=== PATIENT | male | born 1950 | race Caucasian/White ===

== ENCOUNTER 2022-07-19 07:20 | Observation (INO) | payer MEDICARE, OTHER ==
[~2022-07-19] VITALS: Ht 172.7 cm; Wt 189.0 kg
[2022-07-19 07:48] VITALS: BP_SYST 117; BP_SYST 122; BP_DIAS 75; BP_DIAS 78; BP_DIAS 81
--- NOTE | 2022-07-19 08:05 | ED Syncope ---
General Chief Complaint: Trauma-Non Activation Stated Complaint: FALL Nursing Triage Note: PT TO ROOM 05 [facility]IA [facility] WITH C/O TRIPPING AND FALLING AT WORK. PT DENIES LOC. PT DENIES HEAD/NECK/BACK PAIN. EMS STATES PT TRIPPED AND FELL AND THEN WENT BACK TO WORK. EMS STATES PT DID NOT SIT AND REST AFTER FALL AND THAT PT WENT BACK TO WORK AND FELL AGAIN UNWITNESSED AND WAS FOUND WITH A "CART" ON TOP OF HIM. PT STATES HE DOES NOT REMEMBER WHAT HAPPENED AND DOES NOT REMEMBER FALLING. PT A/O X4 UPON ARRIVAL. History of Present Illness Date Seen by Provider: Jul 19, 2022 Time Seen by Provider: 07:48 Initial Comments Patient is a 72-year-old male who presents to the emergency room today after what sounds like a syncopal event. 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 He went out and leaned against a truck and as he was going back into work he states that the last thing he remembers. He was found with some type of a cart laying on top of him. He states he felt dizzy as he was walking away from the truck. He states he did have an episode of chest discomfort yesterday. It did not radiate he cannot recall really what it felt like. He denies feeling nauseous or short of breath or sweaty yesterday. He has no cardiac history. He does take medication for hypertension. He is not a smoker. He has never had cardiac evaluation. He states at this time he feels back to normal although "my ass is sore" from sitting in the bed he states. He has a little soreness to his left wrist and a bruise on his left elbow from his fall. No recent illnesses such as fevers, chills, cough or congestion. He is not a diabetic. No problems with bowel or bladder. No other complaints of injury. Timing/Prior Episodes: No Prior History Symptoms Prior to Episode: None Precipitating Factors: Other (was "working" in maintenance) Loss of Consciousness: Unsure Current Symptoms: Other (dizzy prior to syncope) Allergies and Home Medications Allergies Coded Allergies: No Allergy Information Available (Unverified , 07/19/22) Patient Home Medication List Home Medication List Reviewed: Yes No Active Prescriptions or Reported Meds Review of Systems Constitutional: see HPI EENTM: no symptoms reported Respiratory: no symptoms reported Cardiovascular: chest pain (yesterday) Gastrointestinal: no symptoms reported Genitourinary: no symptoms reported Musculoskeletal: joint pain (left wrist) Psychiatric/Neurological: Other (dizzy prior to syncope) Past Crtkqvr-Mjchnj-Morrha Hx Patient Social History Tobacco Use?: No Smoking Status: Former Smoker Smokeless Tobacco Frequency: Never a User Use of E-Cig and/or Vaping dev: No Use of E-Cig and/or Vaping Loc: Never a User Substance use?: No Alcohol Use?: No Pt feels they are or have been: No Physical Exam Vital Signs Vital Signs - First Documented 07/19/22 07:20 Temp 35.6 Pulse 73 Resp 17 B/P (MAP) 106/75 (85) Pulse Ox 96 O2 Delivery Room Air Capillary Refill : Less Than 3 Seconds Height, Weight, BMI Height: '" Weight: lbs. oz. kg; 28.00 BMI Method: General Appearance: No Apparent Distress, WD/WN HEENT: PERRL/EOMI, Pharynx Normal, Other (edentulous) Neck: Full Range of Motion, Normal Inspection, Non Tender Cardiovascular: Regular Rate, Rhythm, Normal Peripheral Pulses Respiratory: Lungs Clear, Normal Breath Sounds, No Accessory Muscle Use, No Respiratory Distress Gastrointestinal: Normal Bowel Sounds, Non Tender, Soft Extremities: Normal Inspection, Normal Range of Motion, Other (slightly tender to palpation to left wrist, no swelling) Neurologic/Psychiatric: Alert, Oriented x3, No Motor/Sensory Deficits, Normal Mood/Affect, 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 Cranial Nerves: Normal Hearing, Normal Speech, PERRL Motor/Sensory: No Motor Deficit, No Sensory Deficit Skin: Normal Color, Warm/Dry, Other (small ecchymoses left elbow) Progress/Results/Core Measures Results/Orders Lab Results Laboratory Tests Test 07/19/22 07:20 07/19/22 08:34 Range/Units White Blood Count 10.9 4.3-11.0 10^3/uL Red Blood Count 5.57 H 4.30-5.52 10^6/uL Hemoglobin 15.7 13.3-17.7 g/dL Hematocrit 47 40-54 % Mean Corpuscular Volume 84 80-99 fL Mean Corpuscular Hemoglobin 28 25-34 pg Mean Corpuscular Hemoglobin Concent 34 32-36 g/dL Red Cell Distribution Width 14.4 10.0-14.5 % Platelet Count 318 130-400 10^3/uL Mean Platelet Volume 9.9 9.0-12.2 fL Immature Granulocyte % (Auto) 1 % Neutrophils (%) (Auto) 56 42-75 % Lymphocytes (%) (Auto) 31 12-44 % Monocytes (%) (Auto) 8 0-12 % Eosinophils (%) (Auto) 4 0-10 % Basophils (%) (Auto) 1 0-10 % Neutrophils # (Auto) 6.1 1.8-7.8 10^3/uL Lymphocytes # (Auto) 3.4 1.0-4.0 10^3/uL Monocytes # (Auto) 0.9 0.0-1.0 10^3/uL Eosinophils # (Auto) 0.4 H 0.0-0.3 10^3/uL Basophils # (Auto) 0.1 0.0-0.1 10^3/uL Immature Granulocyte # (Auto) 0.1 0.0-0.1 10^3/uL Prothrombin Time 12.7 12.2-14.7 SEC INR Comment 0.9 0.8-1.4 Activated Partial Thromboplast Time 28 24-35 SEC Sodium Level 136 135-145 MMOL/L Potassium Level 4.1 3.6-5.0 MMOL/L Chloride Level 103 98-107 MMOL/L Carbon Dioxide Level 20 L 21-32 MMOL/L Anion Gap 13 5-14 MMOL/L Blood Urea Nitrogen 25 H 7-18 MG/DL Creatinine 1.76 H 0.60-1.30 MG/DL Estimat Glomerular Filtration Rate 40 BUN/Creatinine Ratio 14 Glucose Level 164 H 70-105 MG/DL Calcium Level 9.8 8.5-10.1 MG/DL Corrected Calcium 9.4 8.5-10.1 MG/DL Magnesium Level 2.0 1.6-2.4 MG/DL Total Bilirubin 0.6 0.1-1.0 MG/DL Aspartate Amino Transf (AST/SGOT) 26 5-34 U/L Alanine Aminotransferase (ALT/SGPT) 32 0-55 U/L Alkaline Phosphatase 54 40-136 U/L Myoglobin 147.2 H 10.0-92.0 NG/ML Troponin I < 0.028 <0.028 NG/ML Total Protein 8.3 H 6.4-8.2 GM/DL Albumin 4.5 3.2-4.5 GM/DL Glucometer 128 H 70-110 MG/DL My Orders Orders - MARCELINA HENLEY MD Ekg Tracing (07/19/22 07:52) Cbc With Automated Diff (07/19/22 08:05) Magnesium (07/19/22 08:05) Chest 1 View, Ap/Pa Only (07/19/22 08:05) Comprehensive Metabolic Panel (07/19/22 08:05) Myoglobin Serum (07/19/22 08:05) Protime With Inr (07/19/22 08:05) Partial Thromboplastin Time (07/19/22 08:05) O2 (07/19/22 08:05) Monitor-Rhythm Ecg Trace Only (07/19/22 08:05) Lipid Panel (07/20/22 06:00) Ed Iv/Invasive Line Start (07/19/22 08:05) Troponin I Tracy (07/19/22 08:05) Accucheck Stat ONCE (07/19/22 08:05) Vital Signs/I&O 07/19/22 07/19/22 07/19/22 07:20 07:20 07:48 Temp 35.6 35.6 Pulse 73 73 71 77 81 Resp 17 17 B/P (MAP) 106/75 (85) 106/75 (85) 122/75 (91) 122/81 (95) 117/78 (91) Pulse Ox 96 O2 Delivery Room Air Room Air Blood Pressure Mean: 91 Progress Progress Note : Time: 09:34 Progress Note Patient seen and examined, 72-year-old status post syncopal event at work this morning. Unwitnessed. No real injury. He had some discomfort in his left wrist however exam does not support the need for x-ray. Patient's vital signs remained stable. He does have a little chronic kidney disease on Chem-12. Slightly elevated blood glucose. Not anemic. Normal troponin, normal EKG. No cardiac history that he is aware of, treated for hypertension. Non-smoker. Work-up is otherwise unremarkable. No focal neurologic deficit. CT considered however history and physical exam do not support the need. Case discussed with Dr. Toth on [facility]. Recomm[facility] She would like me to consult Dr. Coombs. I have discussed the plan of care with the patient. He is agreeable. Initial ECG Impression Date: Jul 19, 2022 Initial ECG Impression Time: 08:00 Initial ECG Rate: 71 Initial ECG Rhythm: Normal Sinus Initial ECG Intervals KS 184 QRS 103 QTc 447 Comment no ectopy; no ST segment elevation or depression Diagnostic Imaging Diagonstic Imaging: Xray Plain Films/CT/US/NM/MRI: chest Comments [facility] [place] [place] NAME: REGULO SERNA [facility] REC#: [id number] PT STATUS: REG ER : 1950 PHYSICIAN: MARCELINA HENLEY MD ADMIT DATE: 07/19/22/ER Draft Date of Exam:07/19/22 CHEST 1 VIEW, AP/PA ONLY INDICATION: Chest pain COMPARISON: None FINDINGS: Single frontal view of the chest demonstrates normal heart size and pulmonary vascularity. The lungs are well aerated and clear. No large pleural effusion or pneumothorax is seen. The visualized osseous structures show no acute abnormalities. IMPRESSION: 1. No acute cardiopulmonary process. Dictated on workstation # [id number] Dict: 07/19/22 0846 Trans: 07/19/22 0847 CV [id number] Interpreted by: KESHAWN OTOOLE MD Electronically signed by: Departure Communication (Admissions) Time/Spoke to Admitting Phy: 09:[address] Toth; accepts admission Impression Primary Impression: Syncope and collapse Additional Impression: History of hypertension Disposition: ADMITTED INPATIENT Condition: Stable Admissions Decision to Admit Reason: Admit from ER (General) Decision to Admit/Date: Jul 19, 2022 Time/Decision to Admit Time: 09:30 Departure-Patient Inst. Scripts No Active Prescriptions or Reported Meds MARCELINA HENLEY MD Jul 19, 2022 08:04
[2022-07-19 08:10] LABS: BASOPHILS # (AUTO) 0.1 10^3/uL (0.0-0.1); BASOPHILS % (AUTO) 1 % (0-10); EOSINOPHILS # (AUTO) 0.4 10^3/uL (0.0-0.3); EOSINOPHILS % (AUTO) 4 % (0-10); HEMATOCRIT 47 % (40-54); HEMOGLOBIN 15.7 g/dL (13.3-17.7); LYMPHOCYTES # (AUTO) 3.4 10^3/uL (1.0-4.0); LYMPHOCYTES % (AUTO) 31 % (12-44); MEAN CORPUSCULAR HEMOGLOBIN 28 pg (25-34); MEAN CORPUSCULAR HGB CONC 34 g/dL (32-36); MEAN CORPUSCULAR VOLUME 84 fL (80-99); MEAN PLATELET VOLUME 9.9 fL (9.0-12.2); MONOCYTES # (AUTO) 0.9 10^3/uL (0.0-1.0); MONOCYTES % (AUTO) 8 % (0-12); NEUTROPHILS # (AUTO) 6.1 10^3/uL (1.8-7.8); NEUTROPHILS % (AUTO) 56 % (42-75); PLATELET COUNT 318 10^3/uL (130-400); WHITE BLOOD COUNT 10.9 10^3/uL (4.3-11.0)
[2022-07-19 08:19] LABS: INR 0.9 (0.8-1.4); PROTHROMBIN TIME PATIENT 12.7 SEC (12.2-14.7)
[2022-07-19 08:23] LABS: ALBUMIN 4.5 GM/DL (3.2-4.5); BILIRUBIN,TOTAL 0.6 MG/DL (0.1-1.0); CALCIUM 9.8 MG/DL (8.5-10.1); CREATININE SERUM 1.76 MG/DL (0.60-1.30); POTASSIUM 4.1 MMOL/L (3.6-5.0); TOTAL PROTEIN 8.3 GM/DL (6.4-8.2)
--- NOTE | 2022-07-19 08:47 | Diagnostic Imaging Report ---
INDICATION: Chest pain COMPARISON: None FINDINGS: Single frontal view of the chest demonstrates normal heart size and pulmonary vascularity. The lungs are well aerated and clear. No large pleural effusion or pneumothorax is seen. The visualized osseous structures show no acute abnormalities. IMPRESSION: 1. No acute cardiopulmonary process. Dictated by: Dictated on workstation # [id number]
--- NOTE | 2022-07-19 10:32 | Short Stay Summary-Hospitalist ---
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 His family is at the bedside. Telemetry will be maintained and Dr. Coombs's been consulted. He refused COVID swab and influenza swab which is unfortunate because both conditions can cause syncope. Family at the bedside. Source: patient, family Exam Limitations: no limitations Date Seen 07/19/22 Time Seen by a Provider: 13:00 Attending Physician PCP Admitting Physician: Attending Physician: Referring Physician Date of Admission Home Medications & Allergies Home Medications Reviewed patient Home Medication Reconciliation performed by pharmacy medication reconciliations nuclear engineering technician and/or nursing. Patients Allergies have been reviewed. Allergies Allergies Coded Allergies No Allergy Information Available (Ecbmczcmgc23/16/22) Past Qbzjdio-Msesho-Ocpopy Hx Patient Social History Marrital Status: Employed/Student: employed Tobacco Use?: No Smoking Status: Former Smoker Smokeless Tobacco Frequency: Never a User Use of E-Cig and/or Vaping dev: No Use of E-Cig and/or Vaping Loc: Never a User Substance use?: No Alcohol Use?: No Pt feels they are or have been: No Current Status Advance Directives: No Communicates: Verbally Primary Language: Faroese Preferred Spoken Language: Faroese Is interpretation needed?: No Sensory deficits: Vision impairment Implanted or Applied Medical D: None Past Medical History High Cholesterol, Hypertension Review of Systems Constitutional: see HPI, dizziness, malaise, weakness Cardiovascular: chest pain Physical Exam Physical Exam Vital Signs Vital Signs - First Documented 07/19/22 13:06 FiO2 21 Capillary Refill : Less Than 3 Seconds Height, Weight, BMI Height: '" Weight: lbs. oz. kg; 28.00 BMI Method: General Appearance: No Apparent Distress, WD/WN, Chronically ill HEENT: PERRL/EOMI, Pharynx Normal, Other (edentulous) Neck: Full Range of Motion, Normal Inspection, Non Tender Respiratory: Lungs Clear, Normal Breath Sounds, No Accessory Muscle Use, No Respiratory Distress Cardiovascular: Regular Rate, Rhythm, Normal Peripheral Pulses Gastrointestinal: Normal Bowel Sounds, Non Tender, Soft Extremity: Normal Inspection, Normal Range of Motion, Other (slightly tender to palpation to left wrist, no swelling) Neurologic/Psychiatric: Alert, Oriented x3, No Motor/Sensory Deficits, Normal Mood/Affect, 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 Short Stay Diagnosis Discharge Diagnosis-Short Stay Admission Diagnosis Syncope Final Discharge Diagnosis Syncope work-up in progress Conclusion Plan Cardiology consult appreciated Diagnosis/Problems Diagnosis/Problems (1) Syncope and collapse Status: Acute (2) History of hypertension Status: Acute MARGARITA CAIN DO Jul 19, 2022 10:32
[2022-07-19] MEDS ORDERED: BISACODYL 10 MG SUPP (DULCOLAX) PR PRN (11:15)
[2022-07-19] MEDS ORDERED: ANTACID SUSP 30 ML UDC (MYLANTA) PO PRN (11:15)
[2022-07-19] MEDS ORDERED: polyethylene glycoL POWDER 17 GM (MIRALAX) PACK PO PRN (11:15)
[2022-07-19] MEDS ORDERED: HYDROmorphone 2 MG/ML VIAL (DILAUDID) IV PRN (11:15)
[2022-07-19] MEDS ORDERED: diphenhydrAMINE 50 MG/ML INJ (BENADRYL) IVP PRN (11:15)
[2022-07-19] MEDS ORDERED: ACETAMINOPHEN 325 MG TABLET PO PRN (11:15)
[2022-07-19] MEDS ORDERED: MELATONIN 3 MG TABLET PO PRN (11:15)
[2022-07-19] MEDS ORDERED: MILK OF MAGNESIA 400 MG/5 ML 30 ML UDC PO PRN (11:15)
[2022-07-19] MEDS ORDERED: diphenhydrAMINE 25 MG TAB (BENADRYL) PO PRN (11:15)
[2022-07-19] MEDS ORDERED: ONDANSETRON 4 MG (ZOFRAN) ORAL DISSOLVE TAB PO PRN (11:15)
[2022-07-19] MEDS ORDERED: CALCIUM CARBONATE 500 MG (TUMS) TAB.CHEW PO PRN (11:15)
[2022-07-19] MEDS ORDERED: LACTULOSE SYRUP 10GM/15ML (ENULOSE) 30ML UDC PO PRN (11:15)
[2022-07-19] MEDS ORDERED: ONDANSETRON 4 MG/2 ML (SDV) Z0FRAN IV PRN (11:15)
[2022-07-19 13:06] VITALS: BP_SYST 106; BP_SYST 143; BP_DIAS 75; BP_DIAS 89
[2022-07-19] MEDS ORDERED: RT-ALBUTEROL SULF 2.5 MG/3 ML PRE-MIX VIAL INH PRN (13:06)
--- NOTE | 2022-07-19 13:56 | Consultation-Cardiology ---
HPI-Cardiology Cardiology Consultation: Date of Consultation 07/19/22 Time Seen by a Provider: 13:40 Date of Admission 07-19-22 Attending Physician Rachna Gold MD Admitting Physician Admitting Physician: Rhonda Toth DO Attending Physician: Rhonda Toth DO Consulting Physician Maggie Coombs MD HPI: Chief Complaint: Syncope Mr. Xiao is a 72 yr old male who has been admitted to 409 from the ED d/t episode of syncope. He reports he was at work this morning when he tripped and fell. He reports he got up and walked over to a truck. He states he was leaning against the truck and went to walk away. He reports feeling dizzy and the next thing he recalls the ambulance was there. He denies any loss of bowel or bladder control. He denies any history of syncope prior to this event. He denies any c/o CP, palpitations. No c/o LE swelling. No c/o n/v/d. He denies poor appetite. Review of Systems-Cardiology Review of Systems Constitutional: No chills, No fever, No malaise Eyes: No vision change Ears/Nose/Throat: No epistaxis, No recent hearing loss Respiratory: As described under HPI Cardiovascular: As described under HPI Gastrointestinal: As described under HPI Genitourinary: dysuria; No hematuria Musculoskeletal: no symptoms reported Skin: No rash on exposed areas, No ulcerations on exposed areas Psychiatric/Neurological: As described under HPI; No anxiety, No depression Hematologic: No bleeding abnormalities TWN-Mqjncj-Fpnbia Hx Patient Social History Smoking Status: Former Smoker Have you traveled recently?: No Alcohol Use?: No Pt feels they are or have been: No Immunizations Up To Date Date of Influenza Vaccine: May 16, 2022 Past Medical History PMH As described under Assessment. Family Medical History Family Medical History: He reports his father had an ID. Allergies and Home Medications Allergies Coded Allergies: No Allergy Information Available (Unverified , 07/19/22) Physical Exam-Cardiology Physical Exam Vital Signs/I&O 07/19/22 07/19/22 07/19/22 07/19/22 07:20 07:20 07:20 07:48 Temp 35.6 35.6 Pulse 73 73 71 77 81 Resp 17 17 B/P (MAP) 106/75 (85) 106/75 (85) 122/75 (91) 122/81 (95) 117/78 (91) Pulse Ox 96 96 O2 Delivery Room Air Room Air Room Air 07/19/22 07/19/22 07/19/22 13:00 13:06 13:06 Temp 36.5 35.6 Pulse 76 80 73 Resp 20 B/P (MAP) 143/89 (107) Pulse Ox 95 96 O2 Delivery Room Air FiO2 21 Capillary Refill : Less Than 3 Seconds Constitutional: AAO x 3, well-developed, well-nourished HEENT: hearing is well preserved; No oral hygience is good (edentulous) Neck: No carotid bruit; carotid pulses are 2 + bilaterally Respiratory: No accessory muscle use, No respiratory distress; chest expansion is symmetric, chest is bilaterally symmetric; No rhonchi Cardiovascular: regular rate-rhythm; No JVD; S1 and S2 Gastrointestinal: No tender; soft, round, audible bowel sounds Extremities: no lower extremity edema bilateral Neurologic/Psychiatric: grossly intact (moves all extremities) Skin: No rash on exposed areas, No ulcerations on exposed areas Data Review Labs Laboratory Tests 07/19/22 07:20: White Blood Count 10.9, Red Blood Count 5.57H, Hemoglobin 15.7, Hematocrit 47, Mean Corpuscular Volume 84, Mean Corpuscular Hemoglobin 28, Mean Corpuscular Hemoglobin Concent 34, Red Cell Distribution Width 14.4, Platelet Count 318, Mean Platelet Volume 9.9, Immature Granulocyte % (Auto) 1, Neutrophils (%) (Auto ) 56, Lymphocytes (%) (Auto) 31, Monocytes (%) (Auto) 8, Eosinophils (%) (Auto) 4, Basophils (%) (Auto) 1, Neutrophils # (Auto) 6.1, Lymphocytes # (Auto) 3.4, Monocytes # (Auto) 0.9, Eosinophils # (Auto) 0.4H, Basophils # (Auto) 0.1, Immature Granulocyte # (Auto) 0.1, Prothrombin Time 12.7, INR Comment 0.9, Activated Partial Thromboplast Time 28, Sodium Level 136, Potassium Level 4.1, Chloride Level 103, Carbon Dioxide Level 20L, Anion Gap 13, Blood Urea Nitrogen 25H, Creatinine 1.76H, Estimat Glomerular Filtration Rate 40, BUN/Creatinine Ratio 14, Glucose Level 164H, Calcium Level 9.8, Corrected Calcium 9.4, Magnesium Level 2.0, Total Bilirubin 0.6, Aspartate Amino Transf (AST/SGOT) 26, Alanine Aminotransferase (ALT/SGPT) 32, Alkaline Phosphatase 54, Myoglobin 147.2H, Troponin I < 0.028, Total Protein 8.3H, Albumin 4.5 07/19/22 08:34: Glucometer 128H Laboratory Tests 07/19/22 07:20 Radiology NAME: REGULO XIAO [facility] REC#: [id number] PT STATUS: REG ER : 1950 PHYSICIAN: MARCELINA HENLEY MD ADMIT DATE: 07/19/22/ER Draft Date of Exam:07/19/22 CHEST 1 VIEW, AP/PA ONLY INDICATION: Chest pain COMPARISON: None FINDINGS: Single frontal view of the chest demonstrates normal heart size and pulmonary vascularity. The lungs are well aerated and clear. No large pleural effusion or pneumothorax is seen. The visualized osseous structures show no acute abnormalities. IMPRESSION: 1. No acute cardiopulmonary process. Dictated on workstation # [id number] Dict: 07/19/22 0846 Trans: 07/19/22 0847 CVB [id number] Interpreted by: KESHAWN OTOOLE MD Electronically signed by: ECG Impression ECG Initial ECG Rhythm: Normal Sinus A/P-Cardiology Assessment/Admission Diagnosis Syncope of undetermined etiology - event occurred following a non-syncopal fall HTN - Lisinopril at home Renal insufficiency - likely d/t vol depletion and/or BRITTANIE (-) tx 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 Toth for this consult KATIE NAIR Jul 19, 2022 13:56
[2022-07-19] MEDS: NS IV 1000 ML 1,000 ML IV SCH (14:30)
[2022-07-19] MEDS: ENOXAPARIN 40 MG/0.4 ML (LOVENOX) SYR SC SCH (14:30)
[2022-07-19] MEDS ORDERED: AMLO-251 PO (15:11)
[2022-07-19] MEDS ORDERED: LISI40TA9 PO (15:11)
[2022-07-19] MEDS ORDERED: SILD50TA PO (15:11)
[2022-07-19 15:31] VITALS: BP 119/75
--- NOTE | 2022-07-19 15:46 | Diagnostic Imaging Report ---
PROCEDURE: US carotid duplex, bilateral. TECHNIQUE: Multiple real-time grayscale images were obtained over the carotid arteries in various projections, bilaterally. Additional spectral analysis and color Doppler duplex images were also obtained. INDICATION: Syncope. FINDINGS: There is mild plaquing in both carotid bulbs. Velocities are normal bilaterally. No velocity elevation or stenosis is seen. Both vertebral arteries show antegrade flow. IMPRESSION: No evidence of a hemodynamically significant stenosis. Parameters based on the consensus panel Dhillon-Scale and Doppler ultrasound criteria published June 2003, Radiology, Volume 229. DOPPLER (peak systolic velocity M/S Right Left CCA 1.1 1.1 ICA Proximal 0.7 0.7 ICA Mid 0.6 0.7 ICA Distal 0.7 0.8 RATIO 0.68 0.67 ECA 1.1 1.0 VERT 0.6 0.4 Dictated by: Dictated on workstation # [id number]
--- NOTE | 2022-07-19 17:26 | Consultation-Cardiology ---
HPI-Cardiology Cardiology Consultation: Date of Consultation 07/19/22 Time Seen by a Provider: 17:00 Date of Admission Attending Physician Rachna Gold MD Admitting Physician Admitting Physician: Rhonda Toth DO Attending Physician: Rhonda Toth DO Consulting Physician ALIA ISAAC MD, MA, FACP, FACC, [facility], CCDS Physician request consult: Dr Toth HPI: Chief Complaint: Syncope Mr. Xiao is a 72 yr old male who has been admitted to [facility] from the ED d/t episode of syncope. He reports he was at work this morning when he tripped and fell. He reports he got up and walked over to a truck. He states he was leaning against the truck and went to walk away. He reports feeling dizzy and the next thing he recalls the ambulance was there. He denies any loss of bowel or bladder control. He denies any history of syncope prior to this event. He denies any c/o CP, palpitations. No c/o LE swelling. No c/o n/v/d. He denies poor appetite. Review of Systems-Cardiology Review of Systems Constitutional: No chills, No fever, No malaise Eyes: No vision change Ears/Nose/Throat: No epistaxis, No recent hearing loss Respiratory: As described under HPI Cardiovascular: As described under HPI Gastrointestinal: As described under HPI Genitourinary: dysuria; No hematuria Musculoskeletal: no symptoms reported Skin: No rash on exposed areas, No ulcerations on exposed areas Psychiatric/Neurological: As described under HPI; No anxiety, No depression Hematologic: No bleeding abnormalities [id number] Hx Patient Social History Smoking Status: Former Smoker Have you traveled recently?: No Alcohol Use?: No Pt feels they are or have been: No Immunizations Up To Date Date of Influenza Vaccine: May 16, 2022 Past Medical History PMH As described under Assessment. Family Medical History Family Medical History: He reports his father had an DE. Allergies and Home Medications Allergies Coded Allergies: No Allergy Information Available (Unverified , 07/19/22) Patient Home Medication List Home Medication List Reviewed: Yes Amlodipine Besylate (Amlodipine Besylate) 10 Mg Tablet, 10 MG PO DAILY, (Reported) Entered as Reported by: KENDRICK DUKE on 07/19/22 7776 Last Action: Reviewed Lisinopril (Lisinopril) 40 Mg Tablet, 40 MG PO DAILY, (Reported) Entered as Reported by: KENDRICK DUKE on 07/19/221510 Last Action: Reviewed Sildenafil Citrate (Viagra) 50 Mg Tablet, 50 MG PO UD PRN for ED, (Reported) Entered as Reported by: KENDRICK DUKE on 07/19/221510 Last Action: Reviewed Physical Exam-Cardiology Physical Exam Vital Signs/I&O 07/19/22 07/19/22 07/19/22 07/19/22 07:20 07:20 07:20 07:48 Temp 35.6 35.6 Pulse 73 73 71 77 81 Resp 17 17 B/P (MAP) 106/75 (85) 106/75 (85) 122/75 (91) 122/81 (95) 117/78 (91) Pulse Ox 96 96 O2 Delivery Room Air Room Air Room Air 07/19/22 07/19/22 07/19/22 07/19/22 12:20 13:00 13:06 13:06 Temp 36.5 35.6 Pulse 76 80 73 Resp 20 B/P (MAP) 143/89 (107) Pulse Ox 97 95 96 O2 Delivery Room Air Room Air FiO2 21 07/19/22 15:31 Temp 37.0 Pulse 86 Resp 18 B/P (MAP) 119/75 (90) Pulse Ox 97 O2 Delivery Room Air Capillary Refill : Less Than 3 Seconds Constitutional: AAO x 3, well-developed, well-nourished HEENT: hearing is well preserved; No oral hygience is good (edentulous) Neck: No carotid bruit; carotid pulses are 2 + bilaterally Respiratory: No accessory muscle use, No respiratory distress; chest expansion is symmetric, chest is bilaterally symmetric; No rhonchi Cardiovascular: regular rate-rhythm; No JVD; S1 and S2 Gastrointestinal: No tender; soft, round, audible bowel sounds Extremities: no lower extremity edema bilateral Neurologic/Psychiatric: grossly intact (moves all extremities) Skin: No rash on exposed areas, No ulcerations on exposed areas Data Review Labs Laboratory Tests 07/19/22 07:20: White Blood Count 10.9, Red Blood Count 5.57H, Hemoglobin 15.7, Hematocrit 47, Mean Corpuscular Volume 84, Mean Corpuscular Hemoglobin 28, Mean Corpuscular He moglobin Concent 34, Red Cell Distribution Width 14.4, Platelet Count 318, Mean Platelet Volume 9.9, Immature Granulocyte % (Auto) 1, Neutrophils (%) (Auto) 56, Lymphocytes (%) (Auto) 31, Monocytes (%) (Auto) 8, Eosinophils (%) (Auto) 4, Basophils (%) (Auto) 1, Neutrophils # (Auto) 6.1, Lymphocytes # (Auto) 3.4, Monocytes # (Auto) 0.9, Eosinophils # (Auto) 0.4H, Basophils # (Auto) 0.1, Immature Granulocyte # (Auto) 0.1, Prothrombin Time 12.7, INR Comment 0.9, Activated Partial Thromboplast Time 28, Sodium Level 136, Potassium Level 4.1, Chloride Level 103, Carbon Dioxide Level 20L, Anion Gap 13, Blood Urea Nitrogen 25H, Creatinine 1.76H, Estimat Glomerular Filtration Rate 40, BUN/Creatinine Ratio 14, Glucose Level 164H, Calcium Level 9.8, Corrected Calcium 9.4, Magnesium Level 2.0, Total Bilirubin 0.6, Aspartate Amino Transf (AST/SGOT) 26, Alanine Aminotransferase (ALT/SGPT) 32, Alkaline Phosphatase 54, Myoglobin 147.2H, Troponin I < 0.028, Total Protein 8.3H, Albumin 4.5 07/19/22 08:34: Glucometer 128H A/P-Cardiology Assessment/Admission Diagnosis Syncope of undetermined etiology - event occurred following a non-syncopal fall HTN - Lisinopril at home Renal insufficiency - likely d/t vol depletion and/or BIRTTANIE (-) tx 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 Toth for this consult ALIA ISAAC MD [facility]S Jul 19, 2022 17:26
[2022-07-19 19:26] VITALS: BP 119/61
[2022-07-19] MEDS: DOCUSATE SODIUM 100 MG (COLACE) CAP PO SCH (21:13)
[2022-07-19] MEDS: SENNOSIDES 8.6 MG (SENOKOT) TAB PO SCH (21:13)
[2022-07-20] VITALS: BP 129/66
[2022-07-20 04:00] VITALS: BP 132/81
[2022-07-20 06:10] LABS: BASOPHILS # (AUTO) 0.1 10^3/uL (0.0-0.1); BASOPHILS % (AUTO) 1 % (0-10); EOSINOPHILS # (AUTO) 0.5 10^3/uL (0.0-0.3); EOSINOPHILS % (AUTO) 4 % (0-10); HEMATOCRIT 46 % (40-54); HEMOGLOBIN 15.3 g/dL (13.3-17.7); LYMPHOCYTES # (AUTO) 2.8 10^3/uL (1.0-4.0); LYMPHOCYTES % (AUTO) 25 % (12-44); MEAN CORPUSCULAR HEMOGLOBIN 28 pg (25-34); MEAN CORPUSCULAR HGB CONC 34 g/dL (32-36); MEAN CORPUSCULAR VOLUME 84 fL (80-99); MEAN PLATELET VOLUME 9.7 fL (9.0-12.2); MONOCYTES # (AUTO) 1.1 10^3/uL (0.0-1.0); MONOCYTES % (AUTO) 9 % (0-12); NEUTROPHILS # (AUTO) 6.9 10^3/uL (1.8-7.8); NEUTROPHILS % (AUTO) 61 % (42-75); PLATELET COUNT 300 10^3/uL (130-400); WHITE BLOOD COUNT 11.4 10^3/uL (4.3-11.0)
[2022-07-20 06:31] LABS: ALBUMIN 4.2 GM/DL (3.2-4.5); BILIRUBIN,TOTAL 0.8 MG/DL (0.1-1.0); CALCIUM 9.6 MG/DL (8.5-10.1); CREATININE SERUM 1.49 MG/DL (0.60-1.30); MAGNESIUM 2.1 MG/DL (1.6-2.4); POTASSIUM 4.1 MMOL/L (3.6-5.0); TOTAL PROTEIN 7.9 GM/DL (6.4-8.2)
[2022-07-20 06:52] LABS: CHOLESTEROL 99 MG/DL (< 200); HDL CHOLESTEROL 46 MG/DL (40-60); TRIGLYCERIDES 101 MG/DL (<150); VLDL CHOLESTEROL 20 MG/DL (5-40)
[2022-07-20 07:05] VITALS: BP 149/71
[2022-07-20] MEDS: DOCUSATE SODIUM 100 MG (COLACE) CAP PO SCH (07:30)
[2022-07-20] MEDS: SENNOSIDES 8.6 MG (SENOKOT) TAB PO SCH (07:31)
[2022-07-20] MEDS: NS IV 1000 ML 1,000 ML IV SCH (09:07)
[2022-07-20] MEDS: ENOXAPARIN 40 MG/0.4 ML (LOVENOX) SYR SC SCH (09:08)
[2022-07-20 11:02] VITALS: BP 120/71
--- NOTE | 2022-07-20 11:08 | Discharge Summary ---
Discharge Summary Hospital Course Was the Problem List Reviewed?: Yes Problems/Dx: (1) Syncope and collapse Status: Acute (2) History of hypertension Status: Acute Hospital Course Date of Admission: Jul 19, 2022 at 10:07 Admission Diagnosis : Family Physician/Provider: Rachna Gold MD Date of Discharge: 07/20/22 Discharge Diagnosis: [ ] Hospital Course: Uneventful hospital course after he was admitted for syncope he was given IV fluids for acute kidney injury on chronic kidney disease and encouraged to drink more fluid. Cardiology evaluated him and maintained on telemetry patient was found to be ready for discharge. He will have close follow-up with PCP. Labs and Pending Lab Test: Laboratory Tests 07/20/22 05:47: White Blood Count 11.4H, Red Blood Count 5.42, Hemoglobin 15.3, Hematocrit 46, Mean Corpuscular Volume 84, Mean Corpuscular Hemoglobin 28, Mean Corpuscular Hemoglobin Concent 34, Red Cell Distribution Width 14.6H, Platelet Count 300, Mean Platelet Volume 9.7, Immature Granulocyte % (Auto) 0, Neutrophils (%) (Auto) 61, Lymphocytes (%) (Auto) 25, Monocytes (%) (Auto) 9, Eosinophils (%) (Auto) 4, Basophils (%) (Auto) 1, Neutrophils # (Auto) 6.9, Lymphocytes # (Auto) 2.8, Monocytes # (Auto) 1.1H, Eosinophils # (Auto) 0.5H, Basophils # (Auto) 0.1, Immature Granulocyte # (Auto) 0.1, Sodium Level 136, Potassium Level 4.1, Chloride Level 105, Carbon Dioxide Level 21, Anion Gap 10, Blood Urea Nitrogen 20H, Creatinine 1.49H, Estimat Glomerular Filtration Rate 49, BUN/Creatinine Ratio 13, Glucose Level 125H, Calcium Level 9.6, Corrected Calcium 9.4, Magnesium Level 2.1, Total Bilirubin 0.8, Aspartate Amino Transf (AST/SGOT) 20, Alanine Aminotransferase (ALT/SGPT) 29, Alkaline Phosphatase 47, Total Protein 7.9, Albumin 4.2, Triglycerides Level 101, Cholesterol Level 99, LDL Cholesterol Direct 40, VLDL Cholesterol 20, HDL Cholesterol 46 Home Meds Active Reported Viagra (Sildenafil Citrate) 50 Mg Tablet 50 Mg PO UD PRN Amlodipine Besylate 10 Mg Tablet 10 Mg PO DAILY Lisinopril 40 Mg Tablet 40 Mg PO DAILY Assessment/Pt Instructions PCP in 1 week Discharge Planning: <30 minutes discharge planning Discharge Instructions Discharge Diet: No Restrictions Discharge Physical Examination Vital Signs Vital Signs Date Time Temp Pulse Resp B/P (MAP) Pulse Ox O2 Delivery O2 Flow Rate FiO2 07/20/22 11:02 36.6 71 18 120/71 (87) 93 Room Air 07/19/22 13:06 21 General Appearance: No Apparent Distress, WD/WN, Chronically ill Allergies: Coded Allergies: No Allergy Information Available (Unverified , 07/19/22) Discharge Summary Date of Admission Jul 19, 2022 at 10:07 Date of Discharge Discharge Date: Jul 20, 2022 Admission Diagnosis Syncope Discharge Diagnosis Cardiology consult appreciated (1) Syncope and collapse Status: Acute (2) History of hypertension Status: Acute MARGARITA CAIN DO Jul 20, 2022 11:08
[2022-07-20 15:16] VITALS: BP 130/69
--- NOTE | 2022-07-20 16:06 | Progress Note - Cardiology ---
Cardiology SOAP Progress Note Subjective: No cp or palp or shortness of breath No recurrence of syncope No n/v/d No swelling No focal weakness Wishes to go home Objective: I&O/Vital Signs 07/20/22 07/20/22 07/20/22 07/20/22 07:00 07:05 08:00 11:02 Temp 36.6 36.6 Pulse 68 71 71 Resp 18 18 B/P (MAP) 149/71 (97) 120/71 (87) Pulse Ox 95 93 O2 Delivery Room Air Room Air Room Air 07/20/22 07/20/22 13:00 15:16 Temp 36.5 Pulse 94 95 Resp 20 B/P (MAP) 130/69 (89) Pulse Ox 93 O2 Delivery Room Air 07/19/22 23:59 Intake Total 840 ml Balance 840 ml Constitutional: AAO x 3, well-developed, well-nourished Respiratory: No accessory muscle use, No respiratory distress; chest expansion is symmetric, chest is bilaterally symmetric; No rhonchi Cardiovascular: regular rate-rhythm; No JVD; S1 and S2 Gastrointestional: No tender; soft, round, audible bowel sounds Extremities: no lower extremity edema bilateral Neurologic/Psychiatric: oriented x 3, other (moves all limbs equally) Skin: No rash on exposed areas, No ulcerations on exposed areas Results/Procedures: Labs Laboratory Tests 07/20/22 05:47: White Blood Count 11.4H, Red Blood Count 5.42, Hemoglobin 15.3, Hematocrit 46, Mean Corpuscular Volume 84, Mean Corpuscular Hemoglobin 28, Mean Corpuscular Hemoglobin Concent 34, Red Cell Distribution Width 14.6H, Platelet Count 300, Mean Platelet Volume 9.7, Immature Granulocyte % (Auto) 0, Neutrophils (%) (Auto) 61, Lymphocytes (%) (Auto) 25, Monocytes (%) (Auto) 9, Eosinophils (%) (Auto) 4, Basophils (%) (Auto) 1, Neutrophils # (Auto) 6.9, Lymphocytes # (Auto) 2.8, Monocytes # (Auto) 1.1H, Eosinophils # (Auto) 0.5H, Basophils # (Auto) 0.1, Immature Granulocyte # (Auto) 0.1, Sodium Level 136, Potassium Level 4.1, Chloride Level 105, Carbon Dioxide Level 21, Anion Gap 10, Blood Urea Nitrogen 20H, Creatinine 1.49H, Estimat Glomerular Filtration Rate 49, BUN/Creatinine Ratio 13, Glucose Level 125H, Calcium Level 9.6, Corrected Calcium 9.4, Magnesium Level 2.1, Total Bilirubin 0.8, Aspartate Amino Transf (AST/SGOT) 20, Alanine Aminotransferase (ALT/SGPT) 29, Alkaline Phosphatase 47, Total Protein 7.9, Albumin 4.2, Triglycerides Level 101, Cholesterol Level 99, LDL Cholesterol Direct 40, VLDL Cholesterol 20, HDL Cholesterol 46 Laboratory Tests 07/19/22 07:20 07/20/22 05:47 A/P: Assessment: Syncope of undetermined etiology - event occurred following a non-syncopal fall. No cardiac source identified so far. W/u for non-cardiac sources of syncope has been with the Hospitalist svce (Dr Toth) - echo on 07/19/22: LVEF 55-60%, no RWMA H/o HTN. Relatively low bp in the hosp: BP meds (amlodipine and lisinopril) stopped Renal insufficiency - likely d/t vol depletion and/or BRITTANIE (-) tx. 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 BP remains around the normal range w/o any bp meds. Renal function has improved * No significant arrhythmia has been documented * W/u for syncope has not been completed, but he insists on going home. We have advised NO driving or operating machinery or putting self in situations were syncope may cause injury to self or others. He understands and states he will comply * Advised f/u at our office on Friday07/22/22. He agrees. Meanwhile, to ER if symptoms recur or any new symptoms ALIA ISAAC MD [facility]S Jul 20, 2022 16:06
== END 2022-07-20 11:07 | disposition home or self-care (01) ==
LOC: EDUNIT# 07:20 → ER 07:27 → 4TH 10:07 → UNDOADMOB 10:07 → 4TH 13:50 → UNDODISOB 07-20 15:50
PROVIDERS: ADMIT Internal Medicine; ATTEND Internal Medicine
DX: R55 Syncope and collapse (principal); N17.9 Acute kidney failure, unspecified; N18.9 Chronic kidney disease, unspecified; I12.9 Hypertensive chronic kidney disease with stage 1 through stage 4 chronic kidney disease, or unspecified chronic kidney disease; Z87.891 Personal history of nicotine dependence
CPT/HCPCS: 71045; 80053 ×2; 80061; 82947; 83735 ×2; 83874; 84484; 85025 ×2; 85610; 85730; 93005 ×2; 93041; 93880; 99284; C8929; G0378; 36415; 93306